=== PATIENT | male | born 1975 | race African-American/Black ===

== ENCOUNTER 2023-02-26 23:55 | Emergency (ER) | payer SELFPAY ==
[~2023-02-26] VITALS: Ht 172.7 cm; Wt 109.1 kg
[2023-02-26 23:58] VITALS: TEMP 99.9
[2023-02-27] MEDS ORDERED: AlOH3/diphen/Lidoc/MgOH2/Simet Oral Susp 10 ML UD Syringe PO ONE (00:15)
[2023-02-27] MEDS ORDERED: Ibuprofen 400 MG TAB PO ONE (00:15)
[2023-02-27] MEDS ORDERED: Acetaminophen 325 MG TAB PO ONE (00:15)
[2023-02-27 00:47] LABS: STREP A POSITIVE
[2023-02-27] MEDS ORDERED: Penicillin G Benz 1,200,000 UNITS/2 ML SYRINGE IM ONE (01:00)
[2023-02-27 01:16] VITALS: PULSE 92
== END 2023-02-27 01:17 | disposition home or self-care (01) ==
LOC: COL.ER 23:55
PROVIDERS: Nurse Practitioner Primary Care
DX: J02.0 Streptococcal pharyngitis (principal)
CPT/HCPCS: J0561